=== PATIENT | male | born 1965 | race American Indian/Alaskan Native ===

== ENCOUNTER 2018-03-19 00:51 | Emergency (ER) | payer SELFPAY ==
[2018-03-19 02:24] LABS: Basophils # (Auto) 0.1 K/mm3 (0.0-0.1); Basophils % (Auto) 0.9 % (0.0-1.8); Eosinophils % (Auto) 0.2 % (0.0-4.3); Hematocrit 37.5 % (35.5-45.6); Hemoglobin 13.1 gm/dl (11.8-15.2); Lymphocytes # (Auto) 0.8 K/mm3 (1.2-5.4); Lymphocytes % (Auto) 12.1 % (13.4-35.0); Mean Corpuscular HGB Conc 35 % (32-34); Mean Corpuscular Hemoglobin 36 pg (28-32); Mean Corpuscular Volume 103 fl (84-94); Monocytes # (Auto) 0.8 K/mm3 (0.0-0.8); Monocytes % (Auto) 11.9 % (0.0-7.3); Platelet Count 228 K/mm3 (140-440); Red Blood Count 3.63 M/mm3 (3.65-5.03); Red Cell Distribution Width 16.2 % (13.2-15.2)
[2018-03-19 02:44] LABS: Bilirubin,Urine NEG (Negative); Blood,Urine NEG (Negative); Color,Urine Yellow (Yellow); Mucus,Urine FEW /HPF
[2018-03-19 02:55] LABS: Amphetamine Screen,Urine PRESUMPTIVE NEGATIVE; Benzodiazepines Screen,Urine PRESUMPTIVE NEGATIVE; Cannabinoid Screen,Urine PRESUMPTIVE NEGATIVE; Cocaine Screen,Urine PRESUMPTIVE NEGATIVE; Methadone Screen,Urine PRESUMPTIVE NEGATIVE; Opiate Screen,Urine PRESUMPTIVE NEGATIVE
[2018-03-19 02:55] LABS: Alanine Aminotransferase 62 units/L (7-56); Albumin 4.4 g/dL (3.9-5); BUN/Creatinine Ratio 5; Blood Urea Nitrogen 3 mg/dL (9-20); Calcium 9.7 mg/dL (8.4-10.2); Hemolysis Index 5
[2018-03-19] MEDS ORDERED: BOOSTRIX IM ONE (03:05)
--- NOTE | 2018-03-19 03:10 | Emergency Department Report ---
ED Syncope HPI - General Chief Complaint: Fall Stated Complaint: HEAD INJURY Time Seen by Provider: 03/19/18 02:44 - History of Present Illness Initial Comments: Ms. Rm is a 52-year-old male who presents syncope. He has a history of hypertension, diabetes and alcohol abuse. He was found on the floor of his home by his daughter. He was dazed and confused. It took several minutes for patientt o become alert. He would not respond to his name although his eyes are open. No seizure activity witnessed. Patient has been hydrating well. He recently started a water pill. He has had ankle swelling for several weeks. Toradol has helped his ankle swelling. He has been taking amlodipine for over 10 years. He is currently taking lisinopril and metoprolol. Patient recalls watching TV. He then remembers getting up walking to the bedroom in preparation to go to bed. Mr. Rm has been heavy drinker for several years. He would drink 1 pint daily of gin. His last drink was 9 days ago on the Sunday before last. He states that he normally has the shakes when he stops drinking. But he denies any history of seizures. He did have tremors for 3 days. He has been well otherwise. He has been able to detoxify himself without assistance. He decided to stop drinking alcohol in order to improve his health. Timing/Prior Episodes: no prior history Precipitating Factors: Positive: none Loss of Consciousness: dazed Current Symptoms: back to normal - Related Data Allergies/Adverse Reactions: Allergies No Known Allergies Allergy (Verified 03/19/18 03:18) ED Review of Systems ROS: Stated complaint: HEAD INJURY Other details as noted in HPI Comment: All other systems reviewed and negative Constitutional: denies: fever, malaise Cardiovascular: denies: chest pain Gastrointestinal: denies: abdominal pain ED Past Medical Hx - Past Medical History Previous Medical History?: Yes Hx Hypertension: Yes Hx Diabetes: Yes - Surgical History Past Surgical History?: No - Social History Smoking Status: Never Smoker Substance Use Type: Alcohol ED Physical Exam - General Limitations: No Limitations General appearance: alert, in no apparent distress - Head Head exam: Present: normocephalic, other (2 superficial eyebrow eyelid lacerations 3 cm in length horizontal) - Eye Eye exam: Present: normal appearance, PERRL, EOMI Pupils: Present: normal accommodation - ENT ENT exam: Present: normal orophraynx, mucous membranes moist - Neck Neck exam: Present: normal inspection. Absent: tenderness, meningismus - Respiratory Respiratory exam: Present: normal lung sounds bilaterally. Absent: respiratory distress, wheezes, rales, rhonchi - Cardiovascular Cardiovascular Exam: Present: regular rate, normal rhythm, normal heart sounds. Absent: systolic murmur, diastolic murmur, rubs, gallop - GI/Abdominal GI/Abdominal exam: Present: soft, normal bowel sounds. Absent: distended, tenderness, guarding, rebound - Rectal Rectal exam: Present: deferred - Extremities Exam Extremities exam: Present: normal inspection, other (mild ankle edema) - Back Exam Back exam: Present: normal inspection - Neurological Exam Neurological exam: Present: alert, oriented X3, CN II-XII intact, normal gait. Absent: motor sensory deficit - Psychiatric Psychiatric exam: Present: normal affect, normal mood - Skin Skin exam: Present: warm, dry, intact, normal color. Absent: rash ED Course Vital Signs 03/19/18 03/19/18 01:30 01:58 Temperature 98.6 F 98.3 F Pulse Rate 72 71 Respiratory 18 16 Rate Blood Pressure 123/73 Blood Pressure 126/86 [Left] O2 Sat by Pulse 98 98 Oximetry - Laceration /Wound Repair Left Eye Wound Location: face Wound Length (cm): 3 Wound's Depth, Shape: superficial Wound Explored: clean Betadine Prep?: No Wound Repaired With: Dermabond Layer Closure?: No Progress: 2 superficial eye lacerations involving the eyebrow and eyelid repaired with Dermabond. 200 mL of normal saline sterile used for irritation. ED Medical Decision Making - Lab Data Result diagrams: 03/19/18 02:03 03/19/18 02:03 Laboratory Results - last 24 hr 03/19/18 03/19/18 03/19/18 01:58 01:58 02:03 WBC 6.4 RBC 3.63 L Hgb 13.1 Hct 37.5 MCV 103 H MCH 36 H MCHC 35 H RDW 16.2 H Plt Count 228 Lymph % (Auto) 12.1 L [place] % (Auto) 11.9 H Eos % (Auto) 0.2 Baso % (Auto) 0.9 Lymph # 0.8 L [place] # 0.8 Eos # 0.0 Baso # 0.1 Seg Neutrophils % 74.9 H Seg Neutrophils # 4.8 Sodium Potassium Chloride Carbon Dioxide Anion Gap BUN Creatinine Estimated GFR BUN/Creatinine Ratio Glucose Calcium Total Bilirubin AST ALT Alkaline Phosphatase Total Protein Albumin Albumin/Globulin Ratio TSH Urine Color Yellow Urine Turbidity Clear Urine pH 7.0 Ur Specific [place] 1.008 Urine Protein 30 mg/dl Urine Glucose (UA) 50 Urine Ketones Neg Urine Blood Neg Urine Nitrite Neg Urine Bilirubin Neg Urine Urobilinogen 4.0 Ur Leukocyte Esterase Neg Urine WBC (Auto) 1.0 Urine RBC (Auto) 1.0 U Epithel Cells (Auto) < 1.0 Urine Mucus Few Urine Opiates Screen Presumptive negative Urine Methadone Screen Presumptive negative Ur Barbiturates Screen Presumptive negative Ur Phencyclidine Scrn Presumptive negative Ur Amphetamines Screen Presumptive negative U Benzodiazepines Scrn Presumptive negative Urine Cocaine Screen Presumptive negative U Marijuana (THC) Screen Presumptive negative Drugs of Abuse Note Disclamer Plasma/Serum Alcohol 03/19/18 03/19/18 03/19/18 02:03 02:03 02:03 WBC RBC Hgb Hct MCV MCH MCHC RDW Plt Count Lymph % (Auto) [place] % (Auto) Eos % (Auto) Baso % (Auto) Lymph # [place] # Eos # Baso # Seg Neutrophils % Seg Neutrophils # Sodium 135 L Potassium 3.0 L Chloride 88.5 L Carbon Dioxide 31 H Anion Gap 19 BUN 3 L Creatinine 0.6 L Estimated GFR > 60 BUN/Creatinine Ratio 5 Glucose 208 H Calcium 9.7 Total Bilirubin 0.80 AST 86 H ALT 62 H Alkaline Phosphatase 89 Total Protein 6.8 Albumin 4.4 Albumin/Globulin Ratio 1.8 TSH 2.410 Urine Color Urine Turbidity Urine pH Ur Specific [place] Urine Protein Urine Glucose (UA) Urine Ketones Urine Blood Urine Nitrite Urine Bilirubin Urine Urobilinogen Ur Leukocyte Esterase Urine WBC (Auto) Urine RBC (Auto) U Epithel Cells (Auto) Urine Mucus Urine Opiates Screen Urine Methadone Screen Ur Barbiturates Screen Ur Phencyclidine Scrn Ur Amphetamines Screen U Benzodiazepines Scrn Urine Cocaine Screen U Marijuana (THC) Screen Drugs of Abuse Note Plasma/Serum Alcohol < 0.01 - EKG Data 03/19/18 03:11 EKG obtained at 227 Rate 70 bpm left axis deviation and right bundle branch block no ST elevation of ischemia - Radiology Data Radiology results: report reviewed No acute intracranial process - Medical Decision Making Ms. Rm is a 52-year-old male with history of hypertension, diabetes and alcohol abuse. Differential diagnosis includes syncope due to orthostasis with new addition of diuretic. He also is at risk for alcohol withdrawal seizures. He does have abnormal EKG with bifascicular block which is usually benign. With hyponatremia hypochloremia and hypokalemia, metabolic disturbance due to hypovolemia/ orthostatis and previous alcohol abuse corroborates impression of dehydration. He was given IV fluid in the ED. He was given tetanus booster. Unclear patient if patient had fall with head trauma or syncope. Strong possibility of orthostatic hypotension leading to syncope. Remote possibility of seizure. However, no indication of incontinence. Without evidence of ischemia on EKG I felt that the patient was appropriate for discharge. No indication of preceding chest pain or shortness of breath. No preceding palpitations. He understands wound care instructions. Critical care attestation.: If time is entered above; I have spent that time in minutes in the direct care of this critically ill patient, excluding procedure time. ED Disposition Clinical Impression: Fall, Head injury due to trauma, Laceration of eyebrow, Eyelid laceration, left , Syncope Disposition: DC-01 TO HOME OR SELFCARE Is pt being admited?: No Does the pt Need Aspirin: No Condition: Stable Instructions: Syncope (ED), Minor Head Injury (ED), Skin Adhesive Care (ED) Referrals: PRIMARY CARE, [Primary Care Provider] - 3-5 Days Time of Disposition: 05:41
[2018-03-19] MEDS ORDERED: NACL 0.9% IR ONE (03:15)
[2018-03-19 06:06] VITALS: BP 121/79
== END 2018-03-19 06:36 | disposition home or self-care (01) ==
LOC: ED 00:51
DX: S01.112A Laceration without foreign body of left eyelid and periocular area, initial encounter (principal); R55 Syncope and collapse; I10 Essential (primary) hypertension; E11.9 Type 2 diabetes mellitus without complications; W18.30XA Fall on same level, unspecified, initial encounter; Y93.89 Activity, other specified; Y92.89 Other specified places as the place of occurrence of the external cause; Y99.8 Other external cause status
CPT/HCPCS: 12013; 36415; 70450; 80053; 80307; 81001; 84443; 85025; 90471; 90715; 93005; 93010; 99284; G0480; 80320